=== PATIENT | female | born 1955 | race Caucasian/White ===

== ENCOUNTER 2019-06-04 14:02 | Observation (INO) ==
--- NOTE | 2019-06-04 14:13 | Emergency Department Note ---
Disposition Clinical Impression: Supraventricular tachycardia, Hyponatremia Chest pain Qualifiers: Chest pain type: unspecified Qualified Code(s): R07.9 - Chest pain, unspecified Disposition: Admitted As Inpatient Condition: Good Time of Disposition: 16:00 General Adult HPI - General Chief complaint: ED Arrhythmia/Palpitations Stated complaint: chest pain Time Seen by Provider: 06/04/19 14:03 Source: patient, EMS Limitations: no limitations Nursing Notes Reviewed: Yes Vital Signs Reviewed: Yes - History of Present Illness HPI Narrative: 64-year-old female presented to emergency department with concern for having an episode of SVT. She was brought in by EMS who gave her 6 mg of adenosine without any swelling out of her heart rate. They repeated and gave her 12 mg of adenosine. Patient states that she started feeling left-sided chest pain as well as pounding in her heart on her way home from work today. She denies havin g chest pain currently. She reports also having some cough and congestion over the last few days. Pain Scale: 0 - Related Data Home Medications Medication Instructions Recorded Confirmed Atorvastatin [Lipitor] 40 mg PO HS 06/04/19 06/04/19 Insulin LISPRO [HumaLOG] 06/04/19 Lisinopril [Zestril] 10 mg PO DAILY 06/04/19 06/04/19 hydroCHLOROthiazide 12.5 mg PO DAILY 06/04/19 06/04/19 [Hydrochlorothiazide] Allergies Allergy/AdvReac Type Severity Reaction Status Date / Time No Known Allergies Allergy Verified 06/04/19 14:39 All systems ED: reviewed and negative except as stated. Review of Systems: As Per HPI Constitutional: Denies: fever Respiratory: Reports: cough Gastrointestinal: Denies: abdominal pain, nausea, vomiting Genitourinary: Denies: dysuria Musculoskeletal: Denies: back pain Past Medical History - Past Medical History Attestation: Yes The following information was validated with the patient. Medical history: Reports: diabetes, hyperlipidemia, hypertension Psychiatric history: Reports: no psych history - Social History Smoking Status: Never smoker Smokeless Tobacco Status: No Alcohol use: Reports: none Drug use: Reports: none Physical Exam - General Limitations: no limitations General appearance: alert, in no apparent distress - Head Head exam: normocephalic - Eye Eye exam: Present: EOMI - ENT ENT exam: mucous membranes moist - Neck Neck exam: Present: trachea midline - Chest Chest inspection: Present: symmetric chest wall rise - Respiratory Respiratory exam: Present: normal lung sounds bilaterally. Absent: respiratory distress - Cardiovascular Cardiovascular exam: Present: normal rhythm - Abdominal Exam Abdominal exam: Present: soft, Non-Tender. Absent: distention, guarding, rebound, rigidity - Extremities Exam Extremities exam: Present: full ROM, normal capillary refill. Absent: calf tenderness - Back Exam Back exam: Present: full ROM - Neurological Exam Neurological exam: Present: alert, oriented X3 - Psychiatric Psychiatric exam: Present: normal affect, normal mood - Skin Skin exam: Present: warm, dry, intact, normal color. Absent: rash Course Vital Signs Temperature 98.5 F 06/04/19 14:06 Pulse Rate 110 06/04/19 14:06 Respiratory Rate 18 06/04/19 14:06 Blood Pressure 121/101 06/04/19 14:06 O2 Sat by Pulse Oximetry 99 06/04/19 14:06 Temperature 98.5 F 06/04/19 14:06 Pulse Rate 95 06/04/19 15:56 Respiratory Rate 18 06/04/19 15:56 Blood Pressure 135/76 06/04/19 15:56 O2 Sat by Pulse Oximetry 99 06/04/19 15:56 Oxygen Delivery Oxygen Delivery Room Air Medical Decision Making - [facility] Narrative Medical decision making narrative: 64-year-old female presented to emergency department concern of having chest pain as well as SVT earlier today. Patient only tachycardic on initial exam. EKG does not show any ischemic ST changes. Troponin negative. Chest x-ray did not reveal any evidence of pneumonia or any other cardiopulmonary abnormality. A d-dimer did not reveal any elevation to suggest pulmonary embolism. Patient was administered 500 mL of normal saline prior to arrival and received a liter in the emergency department. She had a slight decrease in heart rate to the upper 90s. She remained stable hemodynamically. I spoke with Dr. Cruz who recommended 120mg of short acting Cardizem daily with follow-up on outpaitent basis as well as stress testing while inpatient. Patient agreed with plan, hemodynamically stable at that time. Chest X-Ray 06/04/19 14:13 IMPRESSION: No radiographic evidence of acute cardiopulmonary process. D/ / Flash Rondon MD / Flash Rondon MD Interpreting Provider: Flash Rondon MD - Lab Data Result diagrams: 06/04/19 14:25 06/04/19 14:25 Lab Results 06/04/19 06/04/19 06/04/19 Range/Units 14:25 14:25 14:25 WBC 6.0 (4.3-11.1) K/mcL RBC 4.13 (3.82-4.97) M/mcL Hgb 12.4 (11.5-15.4) g/dL Hct 37.7 (35.3-44.9) % MCV 91.3 (83.0-100.0) fL MCH 30.0 (28.0-33.3) pg MCHC 32.9 (31.6-35.5) g/dL RDW 12.4 (11.5-14.5) % Plt Count 267 (140-400) K/mcL MPV 10.4 (9.4-12.4) fL Immature Gran % 0.2 (0-4) % Seg Neutrophils % 61.1 % Lymphocytes % 30.2 % Monocytes % 6.8 % Eosinophils % 1.0 % Basophils % 0.7 % Neutrophils # 3.7 (1.6-8.9) K/mcL Lymphocytes # 1.8 (0.6-4.6) K/mcL Monocytes # 0.4 (0.0-1.3) K/mcL Eosinophils # 0.1 (0.0-0.6) K/mcL Basophils # 0.0 (0.0-0.2) K/mcL D-Dimer (0-500) ng/mLFEU Sodium 131 L (136-145) mEq/L Potassium 4.3 (3.5-5.1) mEq/L Chloride 101 (98-107) mEq/L Carbon Dioxide 22 L (23-29) mEq/L BUN 18 (8-23) mg/dL Creatinine 1.09 (0.60-1.20) mg/dL Est GFR ( Amer) > 60 (> 60) Est GFR (Non-Af Amer) 50 L (> 60) BUN/Creatinine Ratio 17 (6-26) Glucose 196 H (70-105) mg/dL Calculated Osmolality 279 L (280-300) Calcium 9.2 (8.6-10.3) mg/dL Magnesium 1.8 (1.6-2.6) mg/dL Troponin I < 0.03 (< 0.04) ng/mL B-Natriuretic Peptide 48 (Less than 100) pg/mL TSH 1.556 (0.340-5.600) mcIU/mL 06/04/19 Range/Units 14:25 WBC (4.3-11.1) K/mcL RBC (3.82-4.97) M/mcL Hgb (11.5-15.4) g/dL Hct (35.3-44.9) % MCV (83.0-100.0) fL MCH (28.0-33.3) pg MCHC (31.6-35.5) g/dL RDW (11.5-14.5) % Plt Count (140-400) K/mcL MPV (9.4-12.4) fL Immature Gran % (0-4) % Seg Neutrophils % % Lymphocytes % % Monocytes % % Eosinophils % % Basophils % % Neutrophils # (1.6-8.9) K/mcL Lymphocytes # (0.6-4.6) K/mcL Monocytes # (0.0-1.3) K/mcL Eosinophils # (0.0-0.6) K/mcL Basophils # (0.0-0.2) K/mcL D-Dimer 342 (0-500) ng/mLFEU Sodium (136-145) mEq/L Potassium (3.5-5.1) mEq/L Chloride (98-107) mEq/L Carbon Dioxide (23-29) mEq/L BUN (8-23) mg/dL Creatinine (0.60-1.20) mg/dL Est GFR ( Amer) (> 60) Est GFR (Non-Af Amer) (> 60) BUN/Creatinine Ratio (6-26) Glucose (70-105) mg/dL Calculated Osmolality (280-300) Calcium (8.6-10.3) mg/dL Magnesium (1.6-2.6) mg/dL Troponin I (< 0.04) ng/mL B-Natriuretic Peptide (Less than 100) pg/mL TSH (0.340-5.600) mcIU/mL - EKG Data EKG #1 EKG attestation: Yes I reviewed and interpreted this EKG. EKG results narrative: 1409 Heart rate 110 bpm, CO interval 544 ms, CO interval 146 ms, QRS duration 87 ms, QT 2 and 42 ms, left axis deviation. Sinus tachycardia with no ischemic ST changes. Heart Score - Score History: Moderately Suspicious EKG: Normal Age: 45-65 Risk Factors: Equal/Greater than 3 risk factor or history of atherosclerotic disease Troponin: Less than normal limit HEART Score Total: 4
[2019-06-04] MEDS ORDERED: Aspirin 81 MG TAB.CHEW PO STA (14:27)
[2019-06-04 14:34] LABS: Basophils % 0.7 %; Eosinophils # 0.1 K/mcL (0.0-0.6); Hematocrit 37.7 % (35.3-44.9); Hemoglobin 12.4 g/dL (11.5-15.4); Immature Granulocytes % 0.2 % (0-4); Lymphocytes # 1.8 K/mcL (0.6-4.6); Lymphocytes % 30.2 %; Mean Corpuscular HGB Conc 32.9 g/dL (31.6-35.5); Mean Corpuscular Volume 91.3 fL (83.0-100.0); Mean Platelet Volume 10.4 fL (9.4-12.4); Monocytes # 0.4 K/mcL (0.0-1.3); Monocytes % 6.8 %; Neutrophils # 3.7 K/mcL (1.6-8.9); Platelet Count 267 K/mcL (140-400); Red Blood Count 4.13 M/mcL (3.82-4.97); Red Cell Distribution Width 12.4 % (11.5-14.5); Segmented Neutrophils % 61.1 %
[2019-06-04] MEDS ORDERED: 0.9 % Sodium Chloride 1,000 ML IVC ONE (14:50)
[2019-06-04 14:57] LABS: BUN/Creatinine Ratio 17 (6-26); Blood Urea Nitrogen 18 mg/dL (8-23); Calcium 9.2 mg/dL (8.6-10.3); Carbon Dioxide 22 mEq/L (23-29); Chloride 101 mEq/L (98-107); Glucose 196 mg/dL (70-105); Osmolality,Calculated 279 (280-300); Potassium 4.3 mEq/L (3.5-5.1); Sodium 131 mEq/L (136-145); Troponin I < 0.03 ng/mL (< 0.04); eGFR For African Americans > 60 (> 60); eGFR For Non-African Americans 50 (> 60)
[2019-06-04 15:38] LABS: Magnesium 1.8 mg/dL (1.6-2.6)
--- NOTE | 2019-06-04 15:49 | Emergency Department Note ---
Disposition Clinical Impression: Supraventricular tachycardia Chest pain Qualifiers: Chest pain type: unspecified Qualified Code(s): R07.9 - Chest pain, unspecified Disposition: Admitted As Inpatient Condition: Good Time of Disposition: 15:49 General Adult HPI - General Chief complaint: ED Arrhythmia/Palpitations Stated complaint: chest pain Time Seen by Provider: 06/04/19 14:03 Source: patient, EMS Limitations: no limitations - History of Present Illness Pain Scale: 0 - Related Data Home Medications Medication Instructions Recorded Confirmed Atorvastatin [Lipitor] 40 mg PO HS 06/04/19 06/04/19 Insulin LISPRO [HumaLOG] 06/04/19 Lisinopril [Zestril] 10 mg PO DAILY 06/04/19 06/04/19 hydroCHLOROthiazide 12.5 mg PO DAILY 06/04/19 06/04/19 [Hydrochlorothiazide] Allergies Allergy/AdvReac Type Severity Reaction Status Date / Time No Known Allergies Allergy Verified 06/04/19 14:39 Constitutional: Denies: fever Respiratory: Reports: cough Gastrointestinal: Denies: abdominal pain, nausea, vomiting Genitourinary: Denies: dysuria Musculoskeletal: Denies: back pain Past Medical History - Past Medical History Medical history: Reports: diabetes, hyperlipidemia, hypertension Psychiatric history: Reports: no psych history - Social History Smoking Status: Never smoker Smokeless Tobacco Status: No Alcohol use: Reports: none Drug use: Reports: none Physical Exam - General Limitations: no limitations General appearance: alert, in no apparent distress Course Vital Signs Temperature 98.5 F 06/04/19 14:06 Pulse Rate 110 06/04/19 14:06 Respiratory Rate 18 06/04/19 14:06 Blood Pressure 121/101 06/04/19 14:06 O2 Sat by Pulse Oximetry 99 06/04/19 14:06 Temperature 98.5 F 06/04/19 14:06 Pulse Rate 106 06/04/19 14:40 Respiratory Rate 18 06/04/19 14:40 Blood Pressure 109/67 06/04/19 14:40 O2 Sat by Pulse Oximetry 99 06/04/19 14:40 Oxygen Delivery Oxygen Delivery Room Air Medical Decision Making - Lab Data Result diagrams: 06/04/19 14:25 06/04/19 14:25 Lab Results 06/04/19 06/04/19 06/04/19 Range/Units 14:25 14:25 14:25 WBC 6.0 (4.3-11.1) K/mcL RBC 4.13 (3.82-4.97) M/mcL Hgb 12.4 (11.5-15.4) g/dL Hct 37.7 (35.3-44.9) % MCV 91.3 (83.0-100.0) fL MCH 30.0 (28.0-33.3) pg MCHC 32.9 (31.6-35.5) g/dL RDW 12.4 (11.5-14.5) % Plt Count 267 (140-400) K/mcL MPV 10.4 (9.4-12.4) fL Immature Gran % 0.2 (0-4) % Seg Neutrophils % 61.1 % Lymphocytes % 30.2 % Monocytes % 6.8 % Eosinophils % 1.0 % Basophils % 0.7 % Neutrophils # 3.7 (1.6-8.9) K/mcL Lymphocytes # 1.8 (0.6-4.6) K/mcL Monocytes # 0.4 (0.0-1.3) K/mcL Eosinophils # 0.1 (0.0-0.6) K/mcL Basophils # 0.0 (0.0-0.2) K/mcL D-Dimer (0-500) ng/mLFEU Sodium 131 L (136-145) mEq/L Potassium 4.3 (3.5-5.1) mEq/L Chloride 101 (98-107) mEq/L Carbon Dioxide 22 L (23-29) mEq/L BUN 18 (8-23) mg/dL Creatinine 1.09 (0.60-1.20) mg/dL Est GFR ( Amer) > 60 (> 60) Est GFR (Non-Af Amer) 50 L (> 60) BUN/Creatinine Ratio 17 (6-26) Glucose 196 H (70-105) mg/dL Calculated Osmolality 279 L (280-300) Calcium 9.2 (8.6-10.3) mg/dL Magnesium 1.8 (1.6-2.6) mg/dL Troponin I < 0.03 (< 0.04) ng/mL B-Natriuretic Peptide 48 (Less than 100) pg/mL 06/04/19 Range/Units 14:25 WBC (4.3-11.1) K/mcL RBC (3.82-4.97) M/mcL Hgb (11.5-15.4) g/dL Hct (35.3-44.9) % MCV (83.0-100.0) fL MCH (28.0-33.3) pg MCHC (31.6-35.5) g/dL RDW (11.5-14.5) % Plt Count (140-400) K/mcL MPV (9.4-12.4) fL Immature Gran % (0-4) % Seg Neutrophils % % Lymphocytes % % Monocytes % % Eosinophils % % Basophils % % Neutrophils # (1.6-8.9) K/mcL Lymphocytes # (0.6-4.6) K/mcL Monocytes # (0.0-1.3) K/mcL Eosinophils # (0.0-0.6) K/mcL Basophils # (0.0-0.2) K/mcL D-Dimer 342 (0-500) ng/mLFEU Sodium (136-145) mEq/L Potassium (3.5-5.1) mEq/L Chloride (98-107) mEq/L Carbon Dioxide (23-29) mEq/L BUN (8-23) mg/dL Creatinine (0.60-1.20) mg/dL Est GFR ( Amer) (> 60) Est GFR (Non-Af Amer) (> 60) BUN/Creatinine Ratio (6-26) Glucose (70-105) mg/dL Calculated Osmolality (280-300) Calcium (8.6-10.3) mg/dL Magnesium (1.6-2.6) mg/dL Troponin I (< 0.04) ng/mL B-Natriuretic Peptide (Less than 100) pg/mL Attestation Statement - Attestation Attestation: I reviewed the residents documentation and agree with the residents assessment and plan of care. I have personally had face to face time with the patient. (Brief History, Brief Exam, and MDM) I personally supervised and was present for the arce/critical portions of the following procedures completed by the resident: EKG 64 jefry old female presentsot the ED with complaints of chest pain adn then was foudn to be in sVT per EMS and she was thus given adenosine 6mg and then 12mg and she cheically converted. Yen initial workup for cardiopulmonary is neg ative but we have discussed case with cardiology and they recommend admission to the hospitl for stress test, repeat troponins, and start on low dose cardizem. admitted to medicine
[2019-06-04 15:51] LABS: Thyroid Stimulating Hormone 1.556 mcIU/mL (0.340-5.600)
[2019-06-04] MEDS ORDERED: Ondansetron 4 MG/2 ML VIAL IVP PRN (17:24)
[2019-06-04] MEDS ORDERED: Acetaminophen 325 MG TABLET PO PRN (17:24)
[2019-06-04] MEDS ORDERED: Naloxone 0.4 MG/ML INJ IVP PRN (17:24)
--- NOTE | 2019-06-04 17:45 | Internal Med History&Physical ---
Date of Encounter: 06/05/19 Time of Encounter: 17:45 Internal Medicine - H&P: HPI History of present illness: Ms. Szymanski is a 64 year old female who presented to emergency department with diabetes, hyperlipidemia, hypertension who presented with a palpitation,EMS has give the patient 6 mg of of adenosine then 12 mg of adenosine with no improvement. The patient stated that she was out of her house painting for the last 2 days and she admits to decreased oral intake and not hydrating herself well. Laboratory data was suggestive of hyponatremia which most likely secondary to hypovolemic hyponatremia. Hr Generalist consulted by the ER staff and patient insisted to start the patient on Cardizem and follow-up as an outpatient however because the patient also had a chest pain with the ACT decision was made to admit the patient for further evaluation and management management including stress test in a.m. Past Med Surg Social Fam HX - Past Medical History Medical history: diabetes, hyperlipidemia, hypertension Psychiatric history: no psych history - Social History Smoking Status: Never smoker Smokeless Tobacco Status: No Alcohol use: none Drug use: none Internal Medicine - H&P: Meds Atorvastatin [Lipitor] 40 mg PO HS 06/04/19 [History] Insulin LISPRO [HumaLOG] 06/04/19 [History] Lisinopril [Zestril] 10 mg PO DAILY 06/04/19 [History] hydroCHLOROthiazide [Hydrochlorothiazide] 12.5 mg PO DAILY 06/04/19 [History] Allergy/AdvReac Type Severity Reaction Status Date / Time No Known Allergies Allergy Verified 06/04/19 14:39 All Systems PM: A 10-system review of systems was performed and is negative for pertinent findings except as documented above in the HPI. - Constitutional Vitals: Temp Pulse Resp BP Pulse Ox 98.8 F 78 16 135/84 97 06/04/19 16:25 06/04/19 16:25 06/04/19 16:25 06/04/19 16:25 06/04/19 16:25 Internal Med - H&P Results - Labs CBC & Chem 7: 06/05/19 05:32 06/05/19 05:32 Labs: Short CBC 06/04/19 Range/Units 14:25 WBC 6.0 (4.3-11.1) K/mcL Hgb 12.4 (11.5-15.4) g/dL Hct 37.7 (35.3-44.9) % Plt Count 267 (140-400) K/mcL Neutrophils # 3.7 (1.6-8.9) K/mcL BMP 06/04/19 14:25 Sodium 131 L Potassium 4.3 Chloride 101 Carbon Dioxide 22 L BUN 18 Creatinine 1.09 Glucose 196 H Calcium 9.2 Cardiac Enzymes 06/04/19 Range/Units 14:25 Troponin I < 0.03 (< 0.04) ng/mL - Impressions ITS Impressions Chest X-Ray 06/04/19 14:13 IMPRESSION: No radiographic evidence of acute cardiopulmonary process. D/ / Flash Rondon MD / Flash Rondon MD Interpreting Provider: Flash Rondon MD - Assessment and Plan (1) Supraventricular tachycardia Current Visit: Yes Status: Acute Assessment and plan: supraventricular tachycardia most likely secondary to volume depletion, the patient admitted to being working outside was not adequate fluid intake for the last 2 days. Hyponatremia was noted among his laboratory data, which suggestive of hypovolemic state. Cardiology unified communications engineer was consulted by the ER staff and calcium channel renae was recommended was recommended prior to identifying volume depletion as possible etiology of a SVT. I discussed with Dr. Art, cardiology unified communications engineer who agreed to hold calcium channel renae at this point since an underlying etiology was identified and cannot can be corrected. (2) Chest pain Current Visit: Yes Status: Acute Assessment and plan: most likely secondary to supraventricular tachycardia an acute cardiac syndrome is less likely. EKG revealed no significant ST T wave changes and cardiac enzymes first set was a significant abnormalities. We will trend cardiac enzyms and repeat ECG in am. NOP after midnight for stress test in am if trponin remain within normal. Qualifiers: Chest pain type: unspecified Qualified Code(s): R07.9 - Chest pain, unspecified (3) Hyponatremia Current Visit: Yes Status: Acute Assessment and plan: most likely secondary to volume depletion, or resuscitation as a clinic saline f or hydration and recheck sodium in a.m. (4) Hypertension Current Visit: Yes Status: Acute (5) Diabetes mellitus Current Visit: Yes Status: Acute (6) Hyperlipidemia Current Visit: Yes Status: Acute - Time Spent With Patient Total time spent is greater than 50% in coordination of care (as documented) at patient's floor/unit and/or counseling patient:
[2019-06-04] MEDS ORDERED: Diltiazem SR (12hr) 60 MG CAPSULE PO SCH (18:00)
[2019-06-04] MEDS: 0.9 % Sodium Chloride 1,000 ML IVC SCH (18:30)
[2019-06-04 19:18] LABS: Bilirubin,Urine Negative (Negative); Blood,Urine Negative (Negative); Clarity,Urine Clear (Clear); Color,Urine Yellow (Yellow); Glucose,Urine (UA) Normal (Normal); Ketones,Urine Trace mg/dL (Negative); Leukocyte Esterase,Urine Small (Negative); Nitrite,Urine Negative (Negative); PH,Urine 6.5 pH Units (5.0-8.0); Protein,Urine Negative (Neg-Trace); Specific Gravity,Urine 1.006 (1.010-1.025); Urobilinogen,Urine Normal (Normal)
[2019-06-04 19:20] LABS: Bacteria,Urine None Seen per hpf (None-Few); Hyaline Casts,Urine None Seen per lpf (None-Few); RBC,Urine 0-3 per hpf (0-3); Squamous Epithelial Cell,Urine Many per lpf (None-Few)
[2019-06-05] MEDS: 0.9 % Sodium Chloride 1,000 ML IVC SCH (03:17)
[2019-06-05 05:47] LABS: Basophils % 0.7 %; Eosinophils # 0.1 K/mcL (0.0-0.6); Eosinophils % 3.1 %; Hematocrit 34.3 % (35.3-44.9); Hemoglobin 11.2 g/dL (11.5-15.4); Immature Granulocytes % 0.2 % (0-4); Lymphocytes # 1.9 K/mcL (0.6-4.6); Lymphocytes % 45.2 %; Mean Corpuscular HGB Conc 32.7 g/dL (31.6-35.5); Mean Corpuscular Hemoglobin 30.2 pg (28.0-33.3); Mean Corpuscular Volume 92.5 fL (83.0-100.0); Mean Platelet Volume 10.6 fL (9.4-12.4); Monocytes # 0.4 K/mcL (0.0-1.3); Monocytes % 8.7 %; Neutrophils # 1.8 K/mcL (1.6-8.9); Platelet Count 219 K/mcL (140-400); Red Blood Count 3.71 M/mcL (3.82-4.97); Red Cell Distribution Width 12.7 % (11.5-14.5); Segmented Neutrophils % 42.1 %; White Blood Count 4.2 K/mcL (4.3-11.1)
[2019-06-05 05:54] LABS: INR 0.9; Prothrombin Time 10.3 Seconds (9.4-12.1)
[2019-06-05 05:57] LABS: Activated Partial Thrombo Time 29.5 Seconds (26.0-36.0)
[2019-06-05 06:10] LABS: Alanine Aminotransferase 11 Units/L (7-52); Albumin 3.3 g/dL (3.5-5.7); Albumin/Globulin Ratio 1.4 (1.1-2.2); Alkaline Phosphatase 72 Units/L (34-104); Aspartate Amino Transferase 15 Units/L (13-39); BUN/Creatinine Ratio 17 (6-26); Bilirubin,Total 0.4 mg/dL (0.3-1.0); Blood Urea Nitrogen 16 mg/dL (8-23); Calcium 8.6 mg/dL (8.6-10.3); Carbon Dioxide 25 mEq/L (23-29); Chloride 108 mEq/L (98-107); Chol/HDL Ratio 1.8 (0-4.9); Cholesterol 133 mg/dL (< 200); Globulin 2.4 g/dL (2.4-3.5); Glucose 163 mg/dL (70-105); HDL Cholesterol 76 mg/dL (40-59); LDL Cholesterol,Calculated 46 mg/dL (0-99); Magnesium 1.9 mg/dL (1.6-2.6); Osmolality,Calculated 299 (280-300); Potassium 4.2 mEq/L (3.5-5.1); Sodium 142 mEq/L (136-145); Total Protein 5.7 g/dL (6.4-8.9); Triglycerides 57 mg/dL (< 150); eGFR For African Americans > 60 (> 60); eGFR For Non-African Americans 58 (> 60)
[2019-06-05] MEDS ORDERED: Dextrose Gel 15 GM/37.5 ML TUBE PO PRN ×4 (07:07→07:46)
[2019-06-05] MEDS ORDERED: *HR* Dextrose 50 % in Water (Syg) 50 ML SYRINGE IVP PRN ×2 (07:07→07:46)
[2019-06-05] MEDS ORDERED: D5% in Water 1,000 ML IVC PRN ×2 (07:07→07:46)
[2019-06-05] MEDS ORDERED: hydroCHLOROthiazide 25 MG TABLET PO SCH (09:00)
--- NOTE | 2019-06-05 09:58 | Discharge Summary ---
- NOTES TO OUTPATIENT PROVIDER Notes to Outpatient Provider: f/u with cardiology within a week. Orders not resulted at time of discharge: Pending orders 06/04/19 19:00 Culture,Urine [RM] Stat 06/05/19 04:00 Urinalysis reflex Microscopic [URIN] AM 0400 Date of Encounter: 06/05/19 Time of Encounter: 09:56 - Discharge Diagnosis (1) Supraventricular tachycardia Priority: Primary Status: Acute (2) Chest pain Priority: Primary Status: Resolved Qualifiers: Chest pain type: unspecified Qualified Code(s): R07.9 - Chest pain, unspecified (3) Hyponatremia Priority: Primary Status: Resolved (4) Hypertension Priority: Secondary Status: Chronic Qualifiers: Hypertension type: essential hypertension Qualified Code(s): I10 - Essential (primary) hypertension (5) Diabetes mellitus Priority: Secondary Status: Chronic Qualifiers: Diabetes mellitus type: type 2 Diabetes mellitus mcc insulin use: without mcc use Diabetes mellitus complication status: without complication Qualified Code(s): E11.9 - Type 2 diabetes mellitus without complications (6) Hyperlipidemia Priority: Secondary Status: Chronic Qualifiers: Hyperlipidemia type: unspecified Qualified Code(s): E78.5 - Hyperlipidemia, unspecified Hospital course: Ms. Szymanski is a 64 year old female with diabetes, hyperlipidemia, hypertension who presented with a palpitation and are reported SVT.,EMS has give the patient 6 mg of of adenosine then 12 mg of adenosine with no improvement. The patient stated that she was out of her house painting for the last 2 days and she admits to decreased oral intake and not hydrating herself well. Laboratory data was suggestive of hyponatremia which most likely secondary to hypovolemic hyponatremia. She was given oral Cardizem at the ED, also received IV fluid, she self converted back to sinus rhythm. Troponin was negative. Telemetry showed in no acute ST-T change. Patient has no chest pain currently, she denies history of CAD or similar arrhythmia. After discussed with the patient, we will will discharge home, she was instructed to follow up with cardiology within a week, she was also instructed to return if symptoms recur or worsen. Discharge discussed with: patient Time spent discussing smoking cessation with patient: more than 10 minutes - Time Spent with Patient Total time spent providing and/or coordinating discharge services: Time spent: Greater than 30 minutes - Discharge Medications Prescriptions: Continued Lisinopril [Zestril] 10 mg PO DAILY Atorvastatin [Lipitor] 40 mg PO HS Insulin LISPRO [HumaLOG] hydroCHLOROthiazide [Hydrochlorothiazide] 12.5 mg PO DAILY Home Medications: Atorvastatin [Lipitor] 40 mg PO HS 06/04/19 [History] Insulin LISPRO [HumaLOG] 06/04/19 [History] Lisinopril [Zestril] 10 mg PO DAILY 06/04/19 [History] hydroCHLOROthiazide [Hydrochlorothiazide] 12.5 mg PO DAILY 06/04/19 [History] Allergies/Adverse Reactions: Allergy/AdvReac Type Severity Reaction Status Date / Time No Known Allergies Allergy Verified 06/04/19 14:39 Date of admission: 06/04/19 15:45 Primary care physician: Negrita Guadalupe CNP Consults: 06/05/19 07:47 Consult to Cardiology [CONS] Routine Comment: Consulting Provider: Cardiology Ronda Reason for Consult: SVT Call Completed: Yes Anticipated date of discharge: 06/05/19 - Constitutional Vitals: Temp Pulse Resp BP Pulse Ox 97.3 F L 79 16 132/72 99 06/05/19 07:29 06/05/19 07:29 06/05/19 07:29 06/05/19 07:29 06/05/19 07:29 General appearance: Present: A&O X 3 Exam: PHYSICAL EXAMINATION: GENERAL APPEARANCE: The patient is alert, oriented and in no acute distress. HEENT: Head is normocephalic. The sinuses are nontender. Pupils are equal and reactive. The nares are patent. Oropharynx clear without lesions. NECK: Supple without lymphadenopathy. HEART: Regular rate and rhythm. LUNGS: No crackles or wheezes are heard. ABDOMEN: Soft, nontender, nondistended with good bowel sounds heard. Inguinal area is normal. EXTREMITIES: Without cyanosis, clubbing or edema. NEUROLOGICAL: Gross nonfocal. SKIN: Warm and dry without any rash. - Patient Status Disposition: Home, Self-Care Condition: Good Functional capacity at discharge: independent ambulation Overall status at discharge: patient is back to baseline - Discharge Instructions Follow Up With: Negrita Guadalupe CNP [Primary Care Provider] - - Diet and Activity Activity: increase activity as tolerated Diet: diabetic diet, low fat, low cholesterol, low salt diet
[2019-06-05 10:17] VITALS: BP 132/78
--- NOTE | 2019-06-05 10:19 | Cardiology Consult Note ---
Date of Encounter: 06/05/19 Time of Encounter: 10:00 Assessment and Plan (1) Supraventricular tachycardia Current Visit: Yes Status: Acute options of waiting, medical therapy w avn med, or ablation discussed with her. She elects watchful waiting. I noted it could recur, wouldn't be able to predict when. She will stay hydrated and cut back on caffeine intake. (2) Chest pain Current Visit: Yes Status: Resolved 2/2 HR >200. No exertional cp otherwise. On aspirin and statin, no further workup at this time. Advised her to seek med attention if cp again Qualifiers: Chest pain type: unspecified Qualified Code(s): R07.9 - Chest pain, unspecified (3) Hypertension Current Visit: Yes Status: Chronic controlled Qualifiers: Hypertension type: essential hypertension Qualified Code(s): I10 - Essent ial (primary) hypertension Discussion w patient/family: The assessment and plan as outlined above was discussed with the patient and/or family members who expressed understanding and agreement. All questions were answered. Thank you for involving us in the care of your patient. Please call with any questions. History of Present Illness Consult date: 06/05/19 Consult reason: svt Chief complaint: palpitations History of present illness: Ms. 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 Also notes drinking large amounts of diet mtJohn arnold. She developed palpitations and chest discomfort diagnosed with SVT by EMS converted to SR. No previous or subsequent chest discomfort. It was moderate intensity without radiation. Past Med Surg Social Fam HX - Past Medical History Medical history: diabetes, hyperlipidemia, hypertension Psychiatric history: no psych history - Social History Smoking Status: Never smoker Smokeless Tobacco Status: No Alcohol use: none Drug use: none Medications and Allergies Atorvastatin [Lipitor] 40 mg PO HS 06/04/19 [History] Insulin LISPRO [HumaLOG] 06/04/19 [History] Lisinopril [Zestril] 10 mg PO DAILY 06/04/19 [History] hydroCHLOROthiazide [Hydrochlorothiazide] 12.5 mg PO DAILY 06/04/19 [History] Allergy/AdvReac Type Severity Reaction Status Date / Time No Known Allergies Allergy Verified 06/04/19 14:39 All Systems Review: The remainder of the systems were reviewed and are negative - Constitutional Constitutional: no chills, no fever(s) - EENT Eyes: no blurred vision, no loss of vision Nose, mouth and throat: no bleeding gums, no epistaxis - Cardiovascular Cardiovascular: chest pain at rest, palpitations, no chest pain with exertion - Respiratory Respiratory: no hemoptysis, no wheezing - Gastrointestinal Gastrointestinal: no hematemesis, no hematochezia - Genitourinary Genitourinary: no hematuria, no nocturia - Musculoskeletal Musculoskeletal: no muscle cramps, no muscle weakness - Integumentary Integumentary: no rash, no unusual bruising - Neurological Neurological: no syncope, no tingling - Psychiatric Psychiatric: no hallucinations, no panic attacks - Hematological/Lymphatic Hematologic/Lymphatic: no easy bleeding, no easy bruising Physical Examination Vital Signs, Last 4 Hours Temp Pulse Resp BP Pulse Ox 06/05/19 10:16 98.1 F 62 17 132/78 99 06/05/19 07:29 97.3 F L 79 16 132/72 99 General: Conversant HEENT: Atraumatic Neck: No JVD Cardiac: Reg Rate and Rhythm Lungs: Normal Breath Sounds Neuro: Alert and responsive Abdomen: Soft Skin: No rashes noted on visualized skin Musculoskeletal: No Chest Wall Tenderness Extremities: No Edema Results 06/05/19 05:32 06/05/19 05:32 Lab Results 06/04/19 06/04/19 06/04/19 14:25 14:25 14:25 WBC 6.0 Hgb 12.4 Hct 37.7 Plt Count 267 INR APTT D-Dimer Sodium 131 L Potassium 4.3 Chloride 101 Carbon Dioxide 22 L BUN 18 Creatinine 1.09 Glucose 196 H Calcium 9.2 Magnesium 1.8 Total Bilirubin AST ALT Alkaline Phosphatase Troponin I < 0.03 B-Natriuretic Peptide 48 TSH 1.556 06/04/19 06/04/19 06/04/19 14:25 17:48 23:10 WBC Hgb Hct Plt Count INR APTT D-Dimer 342 Sodium Potassium Chloride Carbon Dioxide BUN Creatinine Glucose Calcium Magnesium Total Bilirubin AST ALT Alkaline Phosphatase Troponin I 0.03 0.04 H* B-Natriuretic Peptide TSH 06/05/19 06/05/19 06/05/19 05:32 05:32 05:32 WBC 4.2 L Hgb 11.2 L Hct 34.3 L Plt Count 219 INR 0.9 APTT 29.5 D-Dimer Sodium 142 D Potassium 4.2 Chloride 108 H Carbon Dioxide 25 BUN 16 Creatinine 0.96 Glucose 163 H Calcium 8.6 Magnesium 1.9 Total Bilirubin 0.4 AST 15 ALT 11 Alkaline Phosphatase 72 Troponin I B-Natriuretic Peptide TSH 06/05/19 05:32 WBC Hgb Hct Plt Count INR APTT D-Dimer Sodium Potassium Chloride Carbon Dioxide BUN Creatinine Glucose Calcium Magnesium Total Bilirubin AST ALT Alkaline Phosphatase Troponin I 0.03 B-Natriuretic Peptide TSH Consult Discharge Plan - Plan Referrals: Collins,Negrita Alexis ENERGY SCHEDULER [Primary Care Provider] -
[2019-06-05] MEDS ORDERED: Insulin LISPRO 300 UNITS/3 ML VIAL SQ SCH ×3 (11:30→21:00)
--- NOTE | 2019-06-06 16:21 | Electrocardiograph Report ---
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
--- NOTE | 2019-06-08 14:11 | Electrocardiograph Report ---
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
== END 2019-06-05 11:00 | disposition home or self-care (01) ==
LOC: 3BNU 14:02 → EMEROOARM 14:02 → 3BNU 16:10
PROVIDERS: ADMIT Internal Medicine Nephrology; ATTEND Internal Medicine Nephrology